=== PATIENT | male | born 1940 | race Caucasian/White ===

== ENCOUNTER 2024-10-01 10:56 | Emergency (ER) | payer MEDICARE, MEDICAID ==
[~2024-10-01] VITALS: Ht 182.9 cm; Wt 63.0 kg
[2024-10-01 11:09] VITALS: TEMP 98.4
[2024-10-01] MEDS ORDERED: METF-1211 PO ×2 (13:24)
[2024-10-01] MEDS ORDERED: PERM60CR4 TP (13:57)
[2024-10-01 14:19] VITALS: BP 105/66; PULSE 85; RESP 18; O2SAT 97
== END 2024-10-01 14:19 | disposition home or self-care (01) ==
LOC: EMS 11:02
DX: B86 Scabies (principal); E11.9 Type 2 diabetes mellitus without complications; Z85.46 Personal history of malignant neoplasm of prostate
CPT/HCPCS: 99282; Z7502